=== PATIENT | female | born 1985 | race African-American/Black ===

== ENCOUNTER 2017-07-15 02:51 | Emergency (ER) | payer OTHER ==
[2017-07-15 03:06] VITALS: BP 134/78; BMI 47.9
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
[2017-07-15] MEDS ORDERED: NORFLEX INJ IM ONE (05:22)
[2017-07-15] MEDS ORDERED: TORADOL 60 MG VIAL IM ONE (05:22)
[2017-07-15] MEDS ORDERED: NORFLEX INJ ONE (05:26)
[2017-07-15] MEDS ORDERED: TORADOL 60 MG VIAL ONE (05:26)
== END 2017-07-15 05:45 | disposition home or self-care (01) ==
LOC: ER 02:51
DX: Z04.3 Encounter for examination and observation following other accident (principal); V87.7XXA Person injured in collision between other specified motor vehicles (traffic), initial encounter; R51 Headache; M54.89 Other dorsalgia; M54.2 Cervicalgia
CPT/HCPCS: 70450; 72125; 72131; 73200; 96372; 99283; J1885; J2360